=== PATIENT | female | born 1970 | race Caucasian/White ===

== ENCOUNTER 2016-11-11 09:21 | Emergency (ER) | payer OTHER ==
[~2016-11-11] VITALS: Ht 157.5 cm; Wt 79.5 kg
[2016-11-11] MEDS ORDERED: PANT40TA2 PO (09:36)
[2016-11-11] MEDS ORDERED: OXYB5TA PO (09:36)
[2016-11-11] MEDS ORDERED: BUPR150T5 PO (09:36)
[2016-11-11] MEDS ORDERED: BUSP30TA PO (09:36)
[2016-11-11] MEDS ORDERED: ALBU17IN INH (09:36)
[2016-11-11] MEDS ORDERED: GABA600T PO (09:36)
[2016-11-11] MEDS ORDERED: FENO1CAP2 PO (09:36)
[2016-11-11] MEDS ORDERED: LORA10TA2 PO (09:36)
[2016-11-11] MEDS ORDERED: DALI1TAB2 PO (09:36)
[2016-11-11] MEDS ORDERED: FERR32TA PO (09:36)
[2016-11-11] MEDS ORDERED: HYDR10T PO (09:36)
[2016-11-11] MEDS ORDERED: ROPI1TAB PO (09:36)
[2016-11-11] MEDS ORDERED: TIZANIDINE PO (09:36)
[2016-11-11] MEDS ORDERED: MELO7.5T6 PO (09:36)
[2016-11-11] MEDS ORDERED: ATOR1TAB19 PO (09:36)
[2016-11-11] MEDS ORDERED: traMADol 50 MG TAB PO ONE (10:30)
[2016-11-11] MEDS ORDERED: ULTR50TA PO (11:23)
[2016-11-11 11:27] VITALS: BP 109/74
--- NOTE | 2016-11-11 11:28 | REP ---
LEFT KNEE, FIVE VIEWS: HISTORY: Pain. There is no acute fracture or dislocation. There is narrowing of the joint spaces. Osteophytes are present on the patella. IMPRESSION: Degenerative change as described above. Signed by Erick Pizano MD 11/11/2016 11:37 A
== END 2016-11-11 11:28 | disposition home or self-care (01) ==
LOC: M ED 10:25
DX: M17.9 Osteoarthritis of knee, unspecified (principal); J44.9 Chronic obstructive pulmonary disease, unspecified; G89.29 Other chronic pain; F17.200 Nicotine dependence, unspecified, uncomplicated; Z86.718 Personal history of other venous thrombosis and embolism; Z86.711 Personal history of pulmonary embolism; Z79.899 Other long term (current) drug therapy

== ENCOUNTER 2017-09-24 09:22 | Emergency (ER) | payer OTHER ==
[2017-09-24] MEDS: PERCOCET 5MG/325MG TAB PO (10:08)
== END 2017-09-24 11:01 | disposition home or self-care (01) ==
LOC: M ED 09:22
DX: S23.41XA Sprain of ribs, initial encounter (principal); J44.9 Chronic obstructive pulmonary disease, unspecified; X58.XXXA Exposure to other specified factors, initial encounter; Y92.89 Other specified places as the place of occurrence of the external cause; E78.5 Hyperlipidemia, unspecified; K21.9 Gastro-esophageal reflux disease without esophagitis; F41.9 Anxiety disorder, unspecified; M54.9 Dorsalgia, unspecified; F43.10 Post-traumatic stress disorder, unspecified; Z77.098 Contact with and (suspected) exposure to other hazardous, chiefly nonmedicinal, chemicals; Z79.899 Other long term (current) drug therapy; Z79.52 Long term (current) use of systemic steroids
CPT/HCPCS: 71101

== ENCOUNTER 2018-01-31 11:01 | Emergency (ER) | payer OTHER ==
[2018-01-31] MEDS: NORCO, ANEXSIA 5/325MG TABLET (HYDROcodone/ACETAMINOPHEN) PO (13:48)
== END 2018-01-31 14:14 | disposition home or self-care (01) ==
LOC: M ED 11:01
DX: S90.31XA Contusion of right foot, initial encounter (principal); W10.9XXA Fall (on) (from) unspecified stairs and steps, initial encounter; Y92.009 Unspecified place in unspecified non-institutional (private) residence as the place of occurrence of the external cause; M20.11 Hallux valgus (acquired), right foot; M77.31 Calcaneal spur, right foot; J44.9 Chronic obstructive pulmonary disease, unspecified; G47.419 Narcolepsy without cataplexy; E78.00 Pure hypercholesterolemia, unspecified; D64.9 Anemia, unspecified; F41.9 Anxiety disorder, unspecified; F43.10 Post-traumatic stress disorder, unspecified; F17.200 Nicotine dependence, unspecified, uncomplicated; Z79.899 Other long term (current) drug therapy
CPT/HCPCS: 73630

== ENCOUNTER 2019-01-06 00:12 | Emergency (ER) | payer OTHER ==
[~2019-01-06] VITALS: Ht 157.5 cm; Wt 82.7 kg
[~2019-01-06 00:12] MED LIST: ALBU17IN INH; ATOR1TAB19 PO; BUPR150T5 PO; BUSP30TA PO; DALI1TAB2 PO; FENO135C6 PO; FERR32TA PO; GABA600T4 PO; HYDR-3715 PO; HYDR-643 PO; INCR1INH; LINZ290C; LORA-243 PO; MELO7.5T7 PO; NEXI40CA PO; OLAN15TA PO; ORPH100T; OXYB5TAB10 PO; PANT40TA3 PO; PARO40TA2; PRED5TA; ROPI1TAB PO; TIZANIDINE PO; TOLT2TAB12; TRAZ-163; ULTR50TA8 PO
[2019-01-06] MEDS ORDERED: PANT40TA3 (00:20)
[2019-01-06] MEDS ORDERED: ALBU8.5H (00:20)
[2019-01-06] MEDS ORDERED: MELO7.5T35 (00:20)
[2019-01-06] MEDS ORDERED: METH1TAB40 (00:20)
[2019-01-06] MEDS ORDERED: BUPR150T5 (00:20)
[2019-01-06] MEDS ORDERED: IPRA0.00 (00:20)
[2019-01-06] MEDS ORDERED: CAPSAICIN 0.025% CR 60 GM TOP STA (01:03)
[2019-01-06] MEDS ORDERED: BIOF4GEL4 TOP (01:52)
[2019-01-06] MEDS ORDERED: CAPS0.022 TOP (01:52)
[2019-01-06 02:00] VITALS: BP 137/74
--- NOTE | 2019-01-06 09:54 | REP ---
COMPARISON: 01/06/2012 HISTORY: Pain, no trauma. AP and lateral views only. There is evidence of patellofemoral joint space narrowing and medial compartmental narrowing with tricompartmental marginal osteophytosis. This limited two view examination shows no evidence of a fracture. IMPRESSION: Chronic changes which have developed since the last exam. Electronically Signed by Wagner Vann DO 01/06/2019 10:06 A
--- NOTE | 2019-01-06 09:57 | REP ---
HISTORY: Hip pain. COMPARISON: There are no priors for comparison. There is advanced chronic change seen involving the left hip. There is marked asymmetric hip joint space narrowing with subchondral sclerosis and femoral head flattening. There is no evidence of an acute fracture. The hip may be subluxed somewhat superolaterally. There are no priors for comparison. IMPRESSION: Advanced chronic changes. The findings could be secondary to Perthes disease or chronic AVN. Correlate clinically. Electronically Signed by Wagner Vann DO 01/06/2019 10:06 A
--- NOTE | 2019-01-12 20:36 | ED PDOC ---
Post-Departure Follow-Up dr hoang and ramiro jones faxed formal report of left hip fillm for fu Donal Bassett MD Jan 12, 2019 20:36
== END 2019-01-06 02:01 | disposition home or self-care (01) ==
LOC: M ED 00:12
DX: M16.12 Unilateral primary osteoarthritis, left hip (principal); M17.12 Unilateral primary osteoarthritis, left knee; E78.5 Hyperlipidemia, unspecified; J44.9 Chronic obstructive pulmonary disease, unspecified; Z79.51 Long term (current) use of inhaled steroids; Z79.899 Other long term (current) drug therapy

== ENCOUNTER → 2020-07-24 | Outpatient (CLI) | payer OTHER ==
[~2020-07-24] MED LIST changes: +ALBU8.5H; +BIOF4GEL4 TOP; +BUPR150T5; +CAPS0.022 TOP; +IPRA0.00; +MELO7.5T35; +METH-1164; +PANT40TA29; +PANT40TA29 PO; -PANT40TA3 PO; -ROPI1TAB PO; +ROPI1TAB3 PO; -TRAZ-163; +TRAZ-257
[2020-07-24 09:09] LABS: BASO % 0.2 % (0.0-1.0); HEMATOCRIT 44.7 % (36.0-47.0); HEMOGLOBIN 14.1 g/dl (12.0-15.5); LYMPH # 0.8 10^3/uL (1.5-5.0); LYMPH % 6.7 % (24.0-44.0); MEAN CORPUSCULAR HEMOGLOBIN 29.4 pg (27.0-33.0); MEAN CORPUSCULAR HGB CONC 31.5 g/dl (32.0-36.5); MEAN CORPUSCULAR VOLUME 93.3 fl (80.0-96.0); MONO # 0.4 10^3/uL (0.0-0.8); MONO % 3.6 % (2.0-8.0); NEUTROPHILS # 10.2 10^3/uL (1.5-8.5); NEUTROPHILS % 88.5 % (36.0-66.0); PLATELET COUNT, AUTOMATED 364 10^3/uL (150-450); RED BLOOD COUNT 4.79 10^6/uL (4.00-5.40); WHITE BLOOD COUNT 11.5 10^3/uL (4.0-10.0)
--- NOTE | 2020-07-24 09:21 | REP ---
INDICATION: SHORTNESS OF BREATH/ PT HAS LABS FIRST. COMPARISON: Comparison radiographs September 24, 2017. Comparison is also made with 22 April 2020 prior radiograph. TECHNIQUE: Two views.. FINDINGS: The heart is enlarged. Cardiothoracic ratio measures 59.0%. Pulmonary vasculature is cephalized. Interstitial markings are diffusely prominent. These findings are more pronounced than on the September 24, 2017 prior chest x-ray. In comparison with more recent chest x-ray of 22 April 2020, they are essentially stable however. Pleural angles are sharp. No focal infiltrate is seen. No acute bony abnormality. IMPRESSION: Cardiomegaly and diffuse interstitial pattern, similar to the April 22, 2020 prior radiographs. Some vascular cephalization is seen. No pleural effusion is noted.. <Electronically signed by Manpreet Arriaga > 07/24/20 [id number]
[2020-07-24 09:28] LABS: ERYTHROCYTE SEDIMENTATION RATE 47 mm/hr (0-30)
[2020-07-24 09:35] LABS: ALBUMIN 2.9 GM/DL (3.2-5.2); ALT/SGPT 13 U/L (12-78); BILIRUBIN,TOTAL 0.2 MG/DL (0.2-1.0); BLOOD UREA NITROGEN 8 MG/DL (7-18); CALCIUM LEVEL 9.1 MG/DL (8.5-10.1); CARBON DIOXIDE LEVEL 22 MEQ/L (21-32); CHLORIDE LEVEL 104 MEQ/L (98-107); CREATININE FOR GFR 0.88 MG/DL (0.55-1.30); GLOMERULAR FILTRATION RATE > 60.0 (>51); GLUCOSE, FASTING 110 MG/DL (70-100); MAGNESIUM LEVEL 1.7 MG/DL (1.8-2.4); NT-PRO BNP 434 PG/ML (<125); POTASSIUM SERUM 4.5 MEQ/L (3.5-5.1); RHEUMATOID FACTOR QUANT < 10.0 IU/ML (<15.0); SODIUM LEVEL 137 MEQ/L (136-145); TOTAL PROTEIN 7.4 GM/DL (6.4-8.2)
[2020-07-25 13:33] LABS: ANTINUCLEAR ANTIBODIES DIRECT Negative (Negative)
== END ==
LOC: M LAB 07:55
PROVIDERS: ATTEND Internal Medicine Cardiovascular Disease
DX: R06.02 Shortness of breath (principal); R94.31 Abnormal electrocardiogram [ECG] [EKG]; I47.1 Supraventricular tachycardia

== ENCOUNTER → 2020-12-29 | Outpatient (REF) | payer OTHER ==
[~2020-12-29] MED LIST changes: -OLAN15TA PO; +OLAN15TA13 PO
[2020-12-29 13:31] LABS: C REACTIVE PROTEIN QUANTITATIV 3.49 MG/DL (0.00-0.30); RHEUMATOID FACTOR QUANT 10.3 IU/ML (<15.0); URIC ACID 4.6 MG/DL (2.6-6.0)
[2020-12-29 13:40] LABS: HEPATITIS B SURFACE ANTIBODY NEGATIVE (POSITIVE)
[2020-12-29 13:51] LABS: HEPATITIS B SURFACE ANTIGEN NEGATIVE (NEGATIVE)
[2020-12-29 14:20] LABS: HEPATITIS C VIRUS ABY INDEX 0.1 INDEX (<0.8)
[2020-12-31 00:10] LABS: CYCLIC CITRULLINATED PEPTIDE 7 units (0-19); HEPATITIS B CORE ANTIBODY IGG Negative (Negative)
== END ==
LOC: M SFHCRHEU 10:17
PROVIDERS: ATTEND Internal Medicine
DX: R76.8 Other specified abnormal immunological findings in serum (principal); R70.0 Elevated erythrocyte sedimentation rate; M25.461 Effusion, right knee

== ENCOUNTER → 2021-01-14 | Outpatient (CLI) | payer OTHER ==
--- NOTE | 2021-01-14 10:12 | REP ---
INDICATION: PAIN IN LEFT HIP COMPARISON: None. TECHNIQUE: AP and frog-lateral views of the right and left hip FINDINGS: Right hip demonstrates increased sclerosis along the acetabulum and underlying femoral head with subtle subchondral cystic changes as well as joint space narrowing and mild marginal spurring. No acute fracture or dislocation. Left hip demonstrates severe near complete joint space obliteration with some element of flattening/remodeling as well as underlying subchondral sclerosis and cystic changes to the acetabulum and femoral head. No acute fracture or dislocation. IMPRESSION: 1. Severe osteoarthritic degenerative changes to the left hip. 2. Early-advanced osteoarthritic changes to the right hip. <Electronically signed by Emanuel Banuelos > 01/14/21 [id number]
--- NOTE | 2021-01-14 10:14 | REP ---
INDICATION: PAIN IN LEFT HIP COMPARISON: None. TECHNIQUE: AP, lateral, bilateral oblique and sunrise views right and left knee. FINDINGS: Right knee demonstrates cortical irregularity and subtle spurring at the femoral condyles with increased irregular sclerosis along the lateral femoral condyle as well as increased sclerosis to the tibial plateau with minimal joint space narrowing and subtle chondrocalcinosis. Pastura view demonstrates increased sclerosis along the posterior patellar margin with marginal spurring and mild patellofemoral joint space narrowing. No acute fracture or dislocation. No obvious effusion. Left knee demonstrates mild cortical irregularity to the femoral condyles along with subtle joint space narrowing. Pastura view demonstrates mild increased sclerosis along the posterior patellar margin with mild patellofemoral joint space narrowing. No acute fracture or dislocation. No obvious effusion. IMPRESSION: Relatively moderate tricompartmental osteoarthritic degenerative changes to the bilateral knees (right greater than left). <Electronically signed by Emanuel Banuelos > 01/14/21 [id number]
== END ==
LOC: M PLAIMG 08:07
PROVIDERS: ATTEND Internal Medicine
DX: M25.552 Pain in left hip (principal); M25.551 Pain in right hip; M25.562 Pain in left knee; M25.561 Pain in right knee

== ENCOUNTER → 2021-11-22 | Outpatient (CLI) | payer OTHER ==
[~2021-11-22] MED LIST changes: +BUPR-71; +BUPR-71 PO; -BUPR150T5; -BUPR150T5 PO
== END ==
LOC: M RAD 14:43
PROVIDERS: ATTEND Physician Assistant
DX: J44.1 Chronic obstructive pulmonary disease with (acute) exacerbation (principal)

== ENCOUNTER 2022-12-06 13:13 | Inpatient (IN) | payer MEDICAID, OTHER ==
[~2022-12-06] VITALS: Ht 157.5 cm; Wt 43.8 kg
[~2022-12-06 13:13] MED LIST changes: -ORPH100T; +ORPH1TAB6; -ROPI1TAB3 PO; +ROPI1TAB73 PO
[2022-12-06] MEDS ORDERED: IPRATROPIUM 0.5MG/ALBUTEROL 2.5MG INH SOL UD 3ML (DUONEB) NEB ONE (19:35)
[2022-12-06 19:46] LABS: BASO % 0.1 % (0.0-1.0); EOS # 0.4 10^3/uL (0.0-0.5); EOS % 2.9 % (0.0-3.0); HEMATOCRIT 43.1 % (36.0-47.0); HEMOGLOBIN 14.3 g/dl (12.0-15.5); LYMPH # 1.4 10^3/uL (1.5-5.0); MEAN CORPUSCULAR HEMOGLOBIN 29.2 pg (27.0-33.0); MEAN CORPUSCULAR HGB CONC 33.2 g/dl (32.0-36.5); MONO # 0.9 10^3/uL (0.0-0.8); MONO % 7.2 % (2.0-8.0); NEUTROPHILS # 9.7 10^3/uL (1.5-8.5); NEUTROPHILS % 78.5 % (36.0-66.0); PLATELET COUNT, AUTOMATED 407 10^3/uL (150-450); WHITE BLOOD COUNT 12.3 10^3/uL (4.0-10.0)
[2022-12-06 20:03] LABS: BLOOD UREA NITROGEN 10 MG/DL (9-23); CALCIUM LEVEL 8.6 MG/DL (8.5-10.1); CARBON DIOXIDE LEVEL 30 MMOL/L (20-31); CHLORIDE LEVEL 91 MMOL/L (98-107); CREATININE FOR GFR 0.43 MG/DL (0.55-1.30); GLOMERULAR FILTRATION RATE > 60.0 (>51); GLUCOSE, FASTING 95 MG/DL (60-100); POTASSIUM SERUM 3.7 MMOL/L (3.5-5.1); SODIUM LEVEL 128 MMOL/L (136-145)
[2022-12-06] MEDS: traZODone 50 MG TAB PO SCH (21:00)
[2022-12-06] MEDS ORDERED: NS 1,000 ML IV ONE (21:45)
[2022-12-06] MEDS ORDERED: LOPERAMIDE 2 MG CAPLET PO ONE (21:45)
[2022-12-06] MEDS ORDERED: MED REC IN PROGRESS XX SCH (22:05)
[2022-12-06] MEDS ORDERED: ALBU8.5H INH (23:17)
[2022-12-06] MEDS ORDERED: ATOR1TAB19 PO (23:17)
[2022-12-06] MEDS ORDERED: PARO40TA2 PO (23:17)
[2022-12-06] MEDS ORDERED: ROPI1TAB73 PO (23:17)
[2022-12-06] MEDS ORDERED: BUSP30TA PO (23:17)
[2022-12-06] MEDS ORDERED: FERR32TA PO (23:17)
[2022-12-06] MEDS ORDERED: ALBU2.5V10 INH (23:17)
[2022-12-06] MEDS ORDERED: TRAZ-257 PO (23:17)
[2022-12-06] MEDS ORDERED: DALI1TAB2 PO (23:17)
[2022-12-06] MEDS ORDERED: LACT237L7 PO (23:17)
[2022-12-06] MEDS ORDERED: TOLT2TAB12 PO (23:17)
[2022-12-06] MEDS ORDERED: GABA600T4 PO (23:17)
[2022-12-06] MEDS ORDERED: VITMTA PO (23:17)
[2022-12-06] MEDS ORDERED: ESOM0.1C PO (23:17)
[2022-12-06] MEDS ORDERED: HOME MED LIST COMPLETE! XX SCH (23:20)
[2022-12-06] MEDS ORDERED: ACETAMINOPHEN TAB 650MG DOSE (2X325MG) PO PRN (23:20)
[2022-12-06] MEDS ORDERED: methylPREDNISolone 40MG 1ML VIAL IV STA (23:20)
[2022-12-06] MEDS ORDERED: ALBUTEROL SULFATE 2.5MG/0.5ML INH NEB SOLN INH PRN (23:20)
[2022-12-07] VITALS (20 sets, daily range): BP systolic 96–148; BP diastolic 56–95; TEMP 97.9–98.6; O2SAT 85–99
[2022-12-07] MEDS: TOLTERODINE (DETROL) 2 MG TAB PO SCH ×2 (00:40→20:50)
[2022-12-07] MEDS: rOPINIRole 1MG TAB PO SCH ×3 (00:41→20:50)
[2022-12-07] MEDS: cefTRIAXone SOD 1 GM in D5W MINI-BAG PLUS 50 ML IV SCH ×2 (01:22→23:52)
[2022-12-07] MEDS: DOXYCYCLINE HYCLATE 100MG TABLET PO SCH ×3 (01:27→20:51)
[2022-12-07] MEDS: GABAPENTIN 300 MG CAP PO SCH ×5 (01:28→20:51)
[2022-12-07] MEDS: busPIRone 10 MG TAB PO SCH ×3 (01:28→21:44)
[2022-12-07 02:08] LABS: BLOOD UREA NITROGEN 10 MG/DL (9-23); CALCIUM LEVEL 8.9 MG/DL (8.5-10.1); CARBON DIOXIDE LEVEL 27 MMOL/L (20-31); CHLORIDE LEVEL 96 MMOL/L (98-107); CREATININE FOR GFR 0.41 MG/DL (0.55-1.30); GLOMERULAR FILTRATION RATE > 60.0 (>51); GLUCOSE, FASTING 85 MG/DL (60-100); POTASSIUM SERUM 3.7 MMOL/L (3.5-5.1); SODIUM LEVEL 129 MMOL/L (136-145)
[2022-12-07] MEDS: IPRATROPIUM 0.5MG/ALBUTEROL 2.5MG INH SOL UD 3ML (DUONEB) INH SCH ×4 (02:56→19:51)
[2022-12-07] MEDS: HEPARIN SOD (PORCINE) 5000UNITS/ML 1ML VIAL/SYRINGE SC SCH ×3 (05:29→21:45)
[2022-12-07] MEDS ORDERED: methylPREDNISolone 40MG 1ML VIAL IV SCH (06:00)
[2022-12-07 06:49] LABS: ALBUMIN 2.8 G/DL (3.2-5.2); ALKALINE PHOSPHATASE 91 U/L (46-116); ALT/SGPT < 9 U/L (7.0-40); AST/SGOT 17 U/L (<34); BILIRUBIN,TOTAL 0.3 MG/DL (0.3-1.2); BLOOD UREA NITROGEN 9 MG/DL (9-23); CALCIUM LEVEL 8.4 MG/DL (8.5-10.1); CARBON DIOXIDE LEVEL 28 MMOL/L (20-31); CHLORIDE LEVEL 97 MMOL/L (98-107); CREATININE FOR GFR 0.42 MG/DL (0.55-1.30); GLOMERULAR FILTRATION RATE > 60.0 (>51); GLUCOSE, FASTING 102 MG/DL (60-100); POTASSIUM SERUM 3.9 MMOL/L (3.5-5.1); SODIUM LEVEL 134 MMOL/L (136-145); TOTAL PROTEIN 6.6 G/DL (5.7-8.2)
[2022-12-07 06:54] LABS: PROCALCITONIN <0.04 ng/ml
[2022-12-07 07:29] LABS: OSMOLALITY URINE 260 MOSM/KG (50-1400)
[2022-12-07 07:36] LABS: BASO % 0.1 % (0.0-1.0); EOS % 0.4 % (0.0-3.0); HEMATOCRIT 40.7 % (36.0-47.0); HEMOGLOBIN 13.6 g/dl (12.0-15.5); LYMPH # 0.4 10^3/uL (1.5-5.0); LYMPH % 3.2 % (24.0-44.0); MEAN CORPUSCULAR HEMOGLOBIN 29.9 pg (27.0-33.0); MEAN CORPUSCULAR HGB CONC 33.4 g/dl (32.0-36.5); MEAN CORPUSCULAR VOLUME 89.5 fl (80.0-96.0); MONO # 0.1 10^3/uL (0.0-0.8); NEUTROPHILS # 10.4 10^3/uL (1.5-8.5); NEUTROPHILS % 94.8 % (36.0-66.0); PLATELET COUNT, AUTOMATED 376 10^3/uL (150-450); RED BLOOD COUNT 4.55 10^6/uL (4.00-5.40)
[2022-12-07 07:44] LABS: SODIUM,RANDOM URINE 42 MMOL/L
[2022-12-07] MEDS ORDERED: ISOVUE-370 76% 100ML VIAL As Ordered ONE (08:22)
[2022-12-07] MEDS: FERROUS GLUCONATE 324 MG TAB PO SCH ×2 (08:40→20:50)
[2022-12-07] MEDS: ATORVASTATIN 10 MG TAB PO SCH (08:40)
[2022-12-07] MEDS: PANTOPRAZOLE 40MG TAB (PROTONIX) PO SCH (08:40)
[2022-12-07] MEDS: PARoxetine 20MG TABLET PO SCH ×2 (08:40→20:51)
[2022-12-07] MEDS ORDERED: methylPREDNISolone 40MG 1ML VIAL IV ONE (09:00)
[2022-12-07 09:01] LABS: CK-MB VALUE MASS 2.8 NG/ML (<3.6)
[2022-12-07 09:08] LABS: MB/CK RELATIVE INDEX 4.44 (< OR =4)
[2022-12-07] MEDS ORDERED: LOPERAMIDE 2 MG CAPLET PO PRN (09:10)
[2022-12-07 09:14] LABS: ABG BASE EXCESS 2.9 (-2.0-2.0); ABG HCO3 27.7 MMOL/L (22.0-26.0); ABG O2 SATURATION 97.3 % (95.0-99.0); ABG PARTIAL PRESSURE CO2 43.3 mmHg (35.0-45.0); ABG PARTIAL PRESSURE O2 94.7 mmHg (75.0-100.0); ABG pH (ARTERIAL) 7.424 UNITS (7.350-7.450)
[2022-12-07] MEDS: MAALOX 30 ML SUSP *UDC PO PRN ×2 (09:21→17:34)
[2022-12-07 11:13] LABS: CK-MB VALUE MASS 2.2 NG/ML (<3.6)
[2022-12-07 11:16] LABS: CPK CREATINE PHOSPHOKINASE 79 U/L (34-145); MB/CK RELATIVE INDEX 2.78 (< OR =4)
[2022-12-07] MEDS: guaiFENesin ER 600 MG TAB PO SCH ×2 (11:48→20:51)
[2022-12-07 12:04] LABS: MAGNESIUM LEVEL 1.3 MG/DL (1.8-2.4)
[2022-12-07 12:14] LABS: PROCALCITONIN <0.04 ng/ml
[2022-12-07 12:15] LABS: CK-MB VALUE MASS 3.3 NG/ML (<3.6)
[2022-12-07 12:16] LABS: MB/CK RELATIVE INDEX 5.23 (< OR =4)
[2022-12-07 12:18] LABS: COMPLEMENT C3 106.9 MG/DL (90.0-170.0); COMPLEMENT C4 26.9 MG/DL (12-36); RHEUMATOID FACTOR QUANT 14.6 IU/ML (<14)
[2022-12-07] MEDS: TIOTROPIUM INHALER/CAPSULE (SPIRIVA) INH SCH (12:24)
[2022-12-07] MEDS: SYMBICORT 80/4.5MCG INHALER 6GM INH SCH ×2 (12:25→19:51)
[2022-12-07] MEDS: methylPREDNISolone 40MG 1ML VIAL IV SCH ×2 (13:23→21:45)
[2022-12-07] MEDS ORDERED: DICYCLOMINE 10 MG CAP PO PRN (16:45)
[2022-12-07] MEDS: MAG SULF 1GM/100ML (MAG RUN) 1 GM in IV 1 EA IV SCH ×4 (17:34→20:50)
[2022-12-07] MEDS: traZODone 50 MG TAB PO SCH (20:51)
[2022-12-08] VITALS (9 sets, daily range): BP systolic 95–130; BP diastolic 57–73; TEMP 97.3–98; O2SAT 85–99
[2022-12-08] MEDS: IPRATROPIUM 0.5MG/ALBUTEROL 2.5MG INH SOL UD 3ML (DUONEB) INH SCH ×4 (03:02→19:42)
[2022-12-08 04:47] LABS: HEMATOCRIT 39.6 % (36.0-47.0); HEMOGLOBIN 13.1 g/dl (12.0-15.5); LYMPH # 0.5 10^3/uL (1.5-5.0); LYMPH % 3.7 % (24.0-44.0); MEAN CORPUSCULAR HEMOGLOBIN 29.8 pg (27.0-33.0); MEAN CORPUSCULAR HGB CONC 33.1 g/dl (32.0-36.5); MEAN CORPUSCULAR VOLUME 90.2 fl (80.0-96.0); MONO # 0.5 10^3/uL (0.0-0.8); MONO % 3.6 % (2.0-8.0); NEUTROPHILS # 12.9 10^3/uL (1.5-8.5); NEUTROPHILS % 92.3 % (36.0-66.0); PLATELET COUNT, AUTOMATED 379 10^3/uL (150-450); RED BLOOD COUNT 4.39 10^6/uL (4.00-5.40)
[2022-12-08] MEDS: methylPREDNISolone 40MG 1ML VIAL IV SCH (05:04)
[2022-12-08] MEDS: HEPARIN SOD (PORCINE) 5000UNITS/ML 1ML VIAL/SYRINGE SC SCH ×3 (05:05→21:44)
[2022-12-08 05:06] LABS: BLOOD UREA NITROGEN 12 MG/DL (9-23); CALCIUM LEVEL 8.2 MG/DL (8.5-10.1); CARBON DIOXIDE LEVEL 29 MMOL/L (20-31); CHLORIDE LEVEL 96 MMOL/L (98-107); CREATININE FOR GFR 0.43 MG/DL (0.55-1.30); GLOMERULAR FILTRATION RATE > 60.0 (>51); GLUCOSE, FASTING 190 MG/DL (60-100); MAGNESIUM LEVEL 2.3 MG/DL (1.8-2.4); POTASSIUM SERUM 3.3 MMOL/L (3.5-5.1); SODIUM LEVEL 134 MMOL/L (136-145)
[2022-12-08] MEDS ORDERED: POTASSIUM CHLORIDE 10MEQ SR TABLET PO ONE ×2 (06:00→08:00)
[2022-12-08] MEDS: SYMBICORT 80/4.5MCG INHALER 6GM INH SCH ×2 (08:14→19:43)
[2022-12-08] MEDS: TIOTROPIUM INHALER/CAPSULE (SPIRIVA) INH SCH (08:14)
[2022-12-08] MEDS: DOXYCYCLINE HYCLATE 100MG TABLET PO SCH (09:06)
[2022-12-08] MEDS: FERROUS GLUCONATE 324 MG TAB PO SCH ×2 (09:06→20:33)
[2022-12-08] MEDS: ATORVASTATIN 10 MG TAB PO SCH (09:06)
[2022-12-08] MEDS: PARoxetine 20MG TABLET PO SCH (09:06)
[2022-12-08] MEDS: PANTOPRAZOLE 40MG TAB (PROTONIX) PO SCH (09:06)
[2022-12-08] MEDS: guaiFENesin ER 600 MG TAB PO SCH ×2 (09:06→20:33)
[2022-12-08] MEDS: rOPINIRole 1MG TAB PO SCH ×2 (09:06→20:33)
[2022-12-08] MEDS: GABAPENTIN 300 MG CAP PO SCH ×4 (09:07→20:33)
[2022-12-08] MEDS: busPIRone 10 MG TAB PO SCH ×2 (09:07→20:33)
[2022-12-08] MEDS ORDERED: LORazepam 2 MG/ML 1ML VIAL IV STA (10:55)
[2022-12-08] MEDS: methylPREDNISolone 125MG 2ML VIAL IV SCH ×2 (12:09→20:33)
[2022-12-08] MEDS: LevoFLOXacin 750 MG TABLET PO SCH (13:34)
[2022-12-08] MEDS: diazePAM 5MG TABLET PO SCH (16:36)
[2022-12-08] MEDS ORDERED: PILL CUTTER 1 EACH XX PRN (16:40)
[2022-12-08] MEDS: TOLTERODINE (DETROL) 2 MG TAB PO SCH (20:33)
[2022-12-08] MEDS: traZODone 50 MG TAB PO SCH (20:33)
[2022-12-09] VITALS (9 sets, daily range): BP systolic 94–118; BP diastolic 55–73; TEMP 97.4–98.8; O2SAT 78–98
[2022-12-09] MEDS: IPRATROPIUM 0.5MG/ALBUTEROL 2.5MG INH SOL UD 3ML (DUONEB) INH SCH ×3 (02:55→13:23)
[2022-12-09 05:04] LABS: BASO % 0.1 % (0.0-1.0); HEMATOCRIT 36.5 % (36.0-47.0); LYMPH # 0.4 10^3/uL (1.5-5.0); LYMPH % 2.3 % (24.0-44.0); MEAN CORPUSCULAR HEMOGLOBIN 29.7 pg (27.0-33.0); MEAN CORPUSCULAR HGB CONC 32.9 g/dl (32.0-36.5); MEAN CORPUSCULAR VOLUME 90.3 fl (80.0-96.0); MONO # 0.7 10^3/uL (0.0-0.8); MONO % 3.6 % (2.0-8.0); NEUTROPHILS # 16.8 10^3/uL (1.5-8.5); NEUTROPHILS % 93.5 % (36.0-66.0); PLATELET COUNT, AUTOMATED 365 10^3/uL (150-450); RED BLOOD COUNT 4.04 10^6/uL (4.00-5.40); WHITE BLOOD COUNT 17.9 10^3/uL (4.0-10.0)
[2022-12-09] MEDS: methylPREDNISolone 125MG 2ML VIAL IV SCH (05:14)
[2022-12-09] MEDS: HEPARIN SOD (PORCINE) 5000UNITS/ML 1ML VIAL/SYRINGE SC SCH (05:14)
[2022-12-09] MEDS: LevoFLOXacin 750 MG TABLET PO SCH (05:15)
[2022-12-09 05:40] LABS: BLOOD UREA NITROGEN 12 MG/DL (9-23); CARBON DIOXIDE LEVEL 32 MMOL/L (20-31); CHLORIDE LEVEL 99 MMOL/L (98-107); CREATININE FOR GFR 0.41 MG/DL (0.55-1.30); GLOMERULAR FILTRATION RATE > 60.0 (>51); GLUCOSE, FASTING 125 MG/DL (60-100); MAGNESIUM LEVEL 1.7 MG/DL (1.8-2.4); POTASSIUM SERUM 4.1 MMOL/L (3.5-5.1); SODIUM LEVEL 133 MMOL/L (136-145)
[2022-12-09] MEDS ORDERED: MAG SULF 1GM/100ML (MAG RUN) 1 GM in IV 1 EA IV ONE (06:00)
[2022-12-09] MEDS: TIOTROPIUM INHALER/CAPSULE (SPIRIVA) INH SCH (07:14)
[2022-12-09] MEDS: SYMBICORT 80/4.5MCG INHALER 6GM INH SCH (07:15)
[2022-12-09] MEDS: FERROUS GLUCONATE 324 MG TAB PO SCH (08:52)
[2022-12-09] MEDS: GABAPENTIN 300 MG CAP PO SCH ×2 (08:52→12:37)
[2022-12-09] MEDS: rOPINIRole 1MG TAB PO SCH (08:52)
[2022-12-09] MEDS: busPIRone 10 MG TAB PO SCH (08:52)
[2022-12-09] MEDS: guaiFENesin ER 600 MG TAB PO SCH (08:53)
[2022-12-09] MEDS: PANTOPRAZOLE 40MG TAB (PROTONIX) PO SCH (08:54)
[2022-12-09] MEDS: ATORVASTATIN 10 MG TAB PO SCH (08:54)
[2022-12-09] MEDS: diazePAM 5MG TABLET PO SCH (08:54)
[2022-12-09] MEDS: PARoxetine 20MG TABLET PO SCH (08:57)
[2022-12-09] MEDS ORDERED: predniSONE 20 MG TAB PO SCH (09:00)
[2022-12-09 09:42] LABS: FREE T4 1.31 NG/DL (0.89-1.76)
[2022-12-09] MEDS ORDERED: DIAZ5TAB PO ×3 (10:54→11:03)
[2022-12-09] MEDS ORDERED: PRED10TA2 PO (10:54)
[2022-12-09] MEDS ORDERED: LEVO1TAB40 PO (10:54)
[2022-12-09] MEDS ORDERED: PRED20TA PO (11:05)
[2022-12-09] MEDS ORDERED: diazePAM 5MG TABLET PO ONE (12:40)
== END 2022-12-09 14:14 | disposition home health service (06) | DRG 249 ==
LOC: M ED 13:13 → EDBD 13:13 → M ED INP 23:20 → M MSPAV 12-07 00:50 → M ICU 12-07 09:38
PROVIDERS: ADMIT Internal Medicine; ATTEND Internal Medicine
DX: R19.7 Diarrhea, unspecified (principal); J96.21 Acute and chronic respiratory failure with hypoxia; J18.9 Pneumonia, unspecified organism; J98.2 Interstitial emphysema; J44.1 Chronic obstructive pulmonary disease with (acute) exacerbation; J45.901 Unspecified asthma with (acute) exacerbation; E87.1 Hypo-osmolality and hyponatremia; Z99.81 Dependence on supplemental oxygen; M79.7 Fibromyalgia; E78.5 Hyperlipidemia, unspecified; D50.9 Iron deficiency anemia, unspecified; G47.00 Insomnia, unspecified; F41.1 Generalized anxiety disorder; F39 Unspecified mood [affective] disorder; K21.9 Gastro-esophageal reflux disease without esophagitis; F81.9 Developmental disorder of scholastic skills, unspecified; D72.829 Elevated white blood cell count, unspecified; E87.6 Hypokalemia; Z87.891 Personal history of nicotine dependence; K58.8 Other irritable bowel syndrome; Z79.899 Other long term (current) drug therapy; N32.81 Overactive bladder

== ENCOUNTER 2022-12-28 15:01 | Observation (INO) | payer MEDICAID, OTHER ==
[~2022-12-28] VITALS: Ht 157.5 cm; Wt 46.4 kg
[~2022-12-28 15:01] MED LIST changes: +ALBU2.5V10 INH; +ALBU8.5H INH; +AZITHROMYCIN 250MG TABLET PO SCH; +DIAZ5TAB PO; +ESOM0.1C PO; +LACT237L7 PO; +LEVO1TAB40 PO; +PARO40TA2 PO; +PRED10TA2 PO; +PRED20TA PO; +TOLT2TAB12 PO; +TRAZ-257 PO; +VITMTA PO
[2022-12-28 15:37] LABS: VENOUS HCO3 33.1 MMOL/L (23.0-27.0); VENOUS O2 SATURATION 97.4 % (60.0-80.0); VENOUS PARTIAL PRESSURE CO2 52.3 mmHg (38.0-50.0); VENOUS PARTIAL PRESSURE O2 96.8 mmHg (30.0-50.0); VENOUS PH 7.419 UNITS (7.330-7.430); VENOUS STANDARD HCO3 30.9 MMOL/L; VENOUS TOTAL CO2 34.7 MMOL/L (24.0-28.0)
[2022-12-28 15:45] LABS: BASO % 0.1 % (0.0-1.0); EOS # 0.1 10^3/uL (0.0-0.5); HEMATOCRIT 42.3 % (36.0-47.0); HEMOGLOBIN 13.3 g/dl (12.0-15.5); LYMPH # 0.5 10^3/uL (1.5-5.0); MEAN CORPUSCULAR HEMOGLOBIN 29.7 pg (27.0-33.0); MEAN CORPUSCULAR HGB CONC 31.4 g/dl (32.0-36.5); MEAN CORPUSCULAR VOLUME 94.4 fl (80.0-96.0); MONO # 0.3 10^3/uL (0.0-0.8); MONO % 1.9 % (2.0-8.0); NEUTROPHILS # 12.6 10^3/uL (1.5-8.5); NEUTROPHILS % 92.6 % (36.0-66.0); PLATELET COUNT, AUTOMATED 321 10^3/uL (150-450); RED BLOOD COUNT 4.48 10^6/uL (4.00-5.40); WHITE BLOOD COUNT 13.6 10^3/uL (4.0-10.0)
[2022-12-28 16:10] LABS: ALKALINE PHOSPHATASE 86 U/L (46-116); ALT/SGPT 17 U/L (7.0-40); AST/SGOT 19 U/L (<34); BILIRUBIN,DIRECT < 0.1 MG/DL (<0.4); BILIRUBIN,TOTAL 0.3 MG/DL (0.3-1.2); BLOOD UREA NITROGEN 12 MG/DL (9-23); CALCIUM LEVEL 8.7 MG/DL (8.5-10.1); CARBON DIOXIDE LEVEL 33 MMOL/L (20-31); CHLORIDE LEVEL 96 MMOL/L (98-107); CREATININE FOR GFR 0.49 MG/DL (0.55-1.30); GLOMERULAR FILTRATION RATE > 60.0 (>51); GLUCOSE, FASTING 109 MG/DL (60-100); SODIUM LEVEL 133 MMOL/L (136-145); THYROID STIMULATING HORMONE 0.501 uIU/ML (0.55-4.78); TOTAL PROTEIN 6.2 G/DL (5.7-8.2)
[2022-12-28] MEDS ORDERED: methylPREDNISolone 125MG 2ML VIAL IV ONE (16:35)
[2022-12-28] MEDS ORDERED: MED REC IN PROGRESS XX SCH (17:15)
[2022-12-28] MEDS ORDERED: ISOVUE-370 76% 100ML VIAL As Ordered ONE (17:23)
[2022-12-28] MEDS ORDERED: LEVALBUTEROL 1.25MG 0.5ML CONCENTRATE NEB INH PRN (18:10)
[2022-12-28] MEDS: IPRATROPIUM 0.5MG/ALBUTEROL 2.5MG INH SOL UD 3ML (DUONEB) NEB SCH (19:50)
[2022-12-28] MEDS ORDERED: AZITHROMYCIN 250MG TABLET PO SCH (20:00)
[2022-12-28] MEDS ORDERED: IPRA0.00 INH (22:21)
[2022-12-28] MEDS ORDERED: DIAZ5TAB PO (22:21)
[2022-12-28] MEDS ORDERED: PRED10TA2 PO (22:21)
[2022-12-28] MEDS ORDERED: HOME MED LIST COMPLETE! XX SCH (22:25)
[2022-12-28] MEDS ORDERED: ALBUTEROL 90 MCG/ACT 8GM HFA INHALER INH PRN (22:30)
[2022-12-28] MEDS ORDERED: diazePAM 5MG TABLET PO PRN (22:30)
[2022-12-28] MEDS: FERROUS GLUCONATE 324 MG TAB PO SCH (22:47)
[2022-12-28] MEDS: busPIRone 10 MG TAB PO SCH (22:53)
[2022-12-28] MEDS: traZODone 100 MG TAB PO SCH (22:53)
[2022-12-28] MEDS: GABAPENTIN 300 MG CAP PO SCH (22:53)
[2022-12-28] MEDS ORDERED: PANTOPRAZOLE 40MG VIAL IV SCH (23:00)
[2022-12-28] MEDS: TOLTERODINE (DETROL) 2 MG TAB PO SCH (23:24)
[2022-12-28] MEDS: rOPINIRole 1MG TAB PO SCH (23:24)
[2022-12-29] VITALS (9 sets, daily range): BP systolic 100–102; BP diastolic 60–71; TEMP 97.3–98.3; O2SAT 94–100
[2022-12-29] MEDS: IPRATROPIUM 0.5MG/ALBUTEROL 2.5MG INH SOL UD 3ML (DUONEB) NEB SCH ×4 (02:47→19:17)
[2022-12-29 04:52] LABS: HEMATOCRIT 41.8 % (36.0-47.0); HEMOGLOBIN 13.3 g/dl (12.0-15.5); LYMPH # 0.6 10^3/uL (1.5-5.0); LYMPH % 8.5 % (24.0-44.0); MEAN CORPUSCULAR HGB CONC 31.8 g/dl (32.0-36.5); MEAN CORPUSCULAR VOLUME 94.1 fl (80.0-96.0); MONO # 0.2 10^3/uL (0.0-0.8); MONO % 3.7 % (2.0-8.0); NEUTROPHILS # 5.7 10^3/uL (1.5-8.5); NEUTROPHILS % 87.5 % (36.0-66.0); PLATELET COUNT, AUTOMATED 310 10^3/uL (150-450); RED BLOOD COUNT 4.44 10^6/uL (4.00-5.40); WHITE BLOOD COUNT 6.6 10^3/uL (4.0-10.0)
[2022-12-29 05:06] LABS: BLOOD UREA NITROGEN 11 MG/DL (9-23); CALCIUM LEVEL 9.1 MG/DL (8.5-10.1); CARBON DIOXIDE LEVEL 37 MMOL/L (20-31); CHLORIDE LEVEL 97 MMOL/L (98-107); CREATININE FOR GFR 0.52 MG/DL (0.55-1.30); GLOMERULAR FILTRATION RATE > 60.0 (>51); GLUCOSE, FASTING 170 MG/DL (60-100); POTASSIUM SERUM 5.1 MMOL/L (3.5-5.1); SODIUM LEVEL 139 MMOL/L (136-145)
[2022-12-29] MEDS ORDERED: diazePAM 5MG TABLET PO PRN ×2 (06:55→12:25)
[2022-12-29] MEDS ORDERED: predniSONE 20 MG TAB PO SCH (09:00)
[2022-12-29] MEDS: OMEPRAZOLE 20MG CAP PO SCH (09:00)
[2022-12-29] MEDS ORDERED: ATORVASTATIN 10 MG TAB PO SCH (09:00)
[2022-12-29] MEDS ORDERED: ENOXAPARIN 30MG/0.3ML SYRINGE (J1650 PER 10MG) SC SCH (09:00)
[2022-12-29] MEDS: busPIRone 10 MG TAB PO SCH ×2 (09:08→20:33)
[2022-12-29] MEDS: GABAPENTIN 300 MG CAP PO SCH ×4 (09:08→20:33)
[2022-12-29] MEDS: rOPINIRole 1MG TAB PO SCH ×2 (09:08→20:33)
[2022-12-29] MEDS: MULTIVITAMINS/MINERALS THERAP 1 TAB PO SCH (09:08)
[2022-12-29] MEDS: FERROUS GLUCONATE 324 MG TAB PO SCH (09:08)
[2022-12-29] MEDS: PARoxetine 20MG TABLET PO SCH (09:08)
[2022-12-29] MEDS: SENOKOT S TAB PO PRN (09:09)
[2022-12-29] MEDS ORDERED: HYOSCYAMINE SULFATE 0.125 MG SUBL TABLET PO PRN (12:25)
[2022-12-29] MEDS ORDERED: SCOPOLAMINE 1MG TRANSDERMAL PATCH TOP PRN (12:25)
[2022-12-29] MEDS: MORPHINE 10MG/0.5ML ORAL CONCENTRATE SOLUTION U/D SL PRN ×2 (14:41→20:40)
[2022-12-29] MEDS ORDERED: LORazepam 1 MG TAB PO PRN (15:25)
[2022-12-29] MEDS: traZODone 100 MG TAB PO SCH (20:33)
[2022-12-29] MEDS: TOLTERODINE (DETROL) 2 MG TAB PO SCH (20:34)
[2022-12-29] MEDS: LORazepam 1 MG TAB PO PRN (20:40)
[2022-12-30] MEDS: IPRATROPIUM 0.5MG/ALBUTEROL 2.5MG INH SOL UD 3ML (DUONEB) NEB SCH ×4 (01:55→20:04)
[2022-12-30] MEDS ORDERED: SODIUM CHLORIDE NASAL 0.65% SPRAY BTL (OCEAN) PRN (02:10)
[2022-12-30] MEDS: PARoxetine 20MG TABLET PO SCH (09:19)
[2022-12-30] MEDS: GABAPENTIN 300 MG CAP PO SCH ×4 (09:19→21:29)
[2022-12-30] MEDS: busPIRone 10 MG TAB PO SCH ×2 (09:19→21:29)
[2022-12-30] MEDS: rOPINIRole 1MG TAB PO SCH ×2 (09:19→21:29)
[2022-12-30] MEDS: MULTIVITAMINS/MINERALS THERAP 1 TAB PO SCH (09:19)
[2022-12-30] MEDS: OMEPRAZOLE 20MG CAP PO SCH (09:19)
[2022-12-30] MEDS: LORazepam 1 MG TAB PO PRN (12:05)
[2022-12-30] MEDS: SENOKOT S TAB PO PRN (12:08)
[2022-12-30] MEDS: TOLTERODINE (DETROL) 2 MG TAB PO SCH (21:29)
[2022-12-30] MEDS: traZODone 100 MG TAB PO SCH (21:29)
[2022-12-30] MEDS: MIRALAX *UNIT DOSE* 17GM PACKET PO PRN (22:08)
[2022-12-30] MEDS: FLUTICASONE PROP 0.05% NASAL SPRAY 16 GM (FLONASE) NARES SCH (22:37)
[2022-12-31] MEDS: IPRATROPIUM 0.5MG/ALBUTEROL 2.5MG INH SOL UD 3ML (DUONEB) NEB SCH ×4 (02:45→20:48)
[2022-12-31] MEDS: ACETAMINOPHEN TAB 650MG DOSE (2X325MG) PO PRN ×2 (03:30→21:03)
[2022-12-31] MEDS: OMEPRAZOLE 20MG CAP PO SCH (07:55)
[2022-12-31] MEDS: GABAPENTIN 300 MG CAP PO SCH ×4 (07:55→21:02)
[2022-12-31] MEDS: busPIRone 10 MG TAB PO SCH ×2 (07:56→21:02)
[2022-12-31] MEDS: rOPINIRole 1MG TAB PO SCH ×2 (07:56→21:03)
[2022-12-31] MEDS: MULTIVITAMINS/MINERALS THERAP 1 TAB PO SCH (07:56)
[2022-12-31] MEDS: PARoxetine 20MG TABLET PO SCH (07:56)
[2022-12-31] MEDS: FLUTICASONE PROP 0.05% NASAL SPRAY 16 GM (FLONASE) NARES SCH ×2 (07:56→21:04)
[2022-12-31] MEDS: SENOKOT S TAB PO PRN (10:06)
[2022-12-31] MEDS: diazePAM 5MG TABLET PO PRN ×2 (10:07→12:25)
[2022-12-31] MEDS: MORPHINE 10MG/0.5ML ORAL CONCENTRATE SOLUTION U/D SL PRN (12:26)
[2022-12-31] MEDS ORDERED: LACTULOSE 20GM/30ML SYRUP UDC PO ONE (13:00)
[2022-12-31] MEDS: traZODone 100 MG TAB PO SCH (21:03)
[2022-12-31] MEDS: TOLTERODINE (DETROL) 2 MG TAB PO SCH (21:03)
[2023-01-01] MEDS: IPRATROPIUM 0.5MG/ALBUTEROL 2.5MG INH SOL UD 3ML (DUONEB) NEB SCH ×4 (01:31→19:16)
[2023-01-01] MEDS: MORPHINE 10MG/0.5ML ORAL CONCENTRATE SOLUTION U/D SL PRN (05:32)
[2023-01-01] MEDS: rOPINIRole 1MG TAB PO SCH ×3 (09:00→20:42)
[2023-01-01] MEDS: MULTIVITAMINS/MINERALS THERAP 1 TAB PO SCH (10:17)
[2023-01-01] MEDS: OMEPRAZOLE 20MG CAP PO SCH (10:17)
[2023-01-01] MEDS: PARoxetine 20MG TABLET PO SCH (10:18)
[2023-01-01] MEDS: diazePAM 5MG TABLET PO PRN (10:18)
[2023-01-01] MEDS: busPIRone 10 MG TAB PO SCH ×2 (10:18→20:41)
[2023-01-01] MEDS: GABAPENTIN 300 MG CAP PO SCH ×4 (10:18→20:41)
[2023-01-01] MEDS: FLUTICASONE PROP 0.05% NASAL SPRAY 16 GM (FLONASE) NARES SCH ×2 (10:19→20:42)
[2023-01-01] MEDS: MIRALAX *UNIT DOSE* 17GM PACKET PO PRN (17:52)
[2023-01-01] MEDS: traZODone 100 MG TAB PO SCH (20:41)
[2023-01-01] MEDS: TOLTERODINE (DETROL) 2 MG TAB PO SCH (20:42)
[2023-01-02] MEDS: IPRATROPIUM 0.5MG/ALBUTEROL 2.5MG INH SOL UD 3ML (DUONEB) NEB SCH ×4 (01:38→19:30)
[2023-01-02] MEDS: SENOKOT S TAB PO PRN (01:57)
[2023-01-02] MEDS: ACETAMINOPHEN TAB 650MG DOSE (2X325MG) PO PRN (01:57)
[2023-01-02] MEDS: rOPINIRole 1MG TAB PO SCH ×2 (08:58→20:25)
[2023-01-02] MEDS: MULTIVITAMINS/MINERALS THERAP 1 TAB PO SCH (08:58)
[2023-01-02] MEDS: busPIRone 10 MG TAB PO SCH ×2 (08:58→20:25)
[2023-01-02] MEDS: PARoxetine 20MG TABLET PO SCH (08:59)
[2023-01-02] MEDS: GABAPENTIN 300 MG CAP PO SCH ×4 (08:59→20:26)
[2023-01-02] MEDS: FLUTICASONE PROP 0.05% NASAL SPRAY 16 GM (FLONASE) NARES SCH ×2 (08:59→20:26)
[2023-01-02] MEDS: OMEPRAZOLE 20MG CAP PO SCH (08:59)
[2023-01-02] MEDS: MORPHINE 10MG/0.5ML ORAL CONCENTRATE SOLUTION U/D SL PRN ×3 (12:00→20:25)
[2023-01-02] MEDS: diazePAM 5MG TABLET PO PRN ×2 (17:22→20:25)
[2023-01-02] MEDS: MIRALAX *UNIT DOSE* 17GM PACKET PO PRN (17:43)
[2023-01-02] MEDS: traZODone 100 MG TAB PO SCH (20:26)
[2023-01-02] MEDS: TOLTERODINE (DETROL) 2 MG TAB PO SCH (20:26)
[2023-01-03] MEDS: IPRATROPIUM 0.5MG/ALBUTEROL 2.5MG INH SOL UD 3ML (DUONEB) NEB SCH ×4 (01:38→20:43)
[2023-01-03] MEDS: MORPHINE 10MG/0.5ML ORAL CONCENTRATE SOLUTION U/D SL PRN ×2 (01:58→21:23)
[2023-01-03] MEDS: ACETAMINOPHEN TAB 650MG DOSE (2X325MG) PO PRN ×2 (04:41→08:35)
[2023-01-03] MEDS: OMEPRAZOLE 20MG CAP PO SCH (08:34)
[2023-01-03] MEDS: GABAPENTIN 300 MG CAP PO SCH ×4 (08:34→21:23)
[2023-01-03] MEDS: PARoxetine 20MG TABLET PO SCH (08:34)
[2023-01-03] MEDS: busPIRone 10 MG TAB PO SCH ×2 (08:34→21:23)
[2023-01-03] MEDS: MULTIVITAMINS/MINERALS THERAP 1 TAB PO SCH (08:34)
[2023-01-03] MEDS: rOPINIRole 1MG TAB PO SCH ×2 (08:34→21:23)
[2023-01-03] MEDS: FLUTICASONE PROP 0.05% NASAL SPRAY 16 GM (FLONASE) NARES SCH ×2 (08:35→21:24)
[2023-01-03] MEDS: diazePAM 5MG TABLET PO PRN ×2 (15:27→21:23)
[2023-01-03] MEDS: MIRALAX *UNIT DOSE* 17GM PACKET PO PRN (17:24)
[2023-01-03] MEDS: traZODone 100 MG TAB PO SCH (21:23)
[2023-01-03] MEDS: TOLTERODINE (DETROL) 2 MG TAB PO SCH (21:23)
[2023-01-04] MEDS: IPRATROPIUM 0.5MG/ALBUTEROL 2.5MG INH SOL UD 3ML (DUONEB) NEB SCH ×4 (00:27→19:28)
[2023-01-04] MEDS: OMEPRAZOLE 20MG CAP PO SCH (09:13)
[2023-01-04] MEDS: MULTIVITAMINS/MINERALS THERAP 1 TAB PO SCH (09:13)
[2023-01-04] MEDS: PARoxetine 20MG TABLET PO SCH (09:13)
[2023-01-04] MEDS: busPIRone 10 MG TAB PO SCH ×2 (09:13→20:53)
[2023-01-04] MEDS: FLUTICASONE PROP 0.05% NASAL SPRAY 16 GM (FLONASE) NARES SCH ×2 (09:13→20:54)
[2023-01-04] MEDS: GABAPENTIN 300 MG CAP PO SCH ×4 (09:13→20:53)
[2023-01-04] MEDS: rOPINIRole 1MG TAB PO SCH ×2 (09:13→20:53)
[2023-01-04] MEDS: MORPHINE 10MG/0.5ML ORAL CONCENTRATE SOLUTION U/D SL PRN ×2 (10:09→21:00)
[2023-01-04] MEDS: diazePAM 5MG TABLET PO PRN ×2 (10:10→21:01)
[2023-01-04] MEDS: MIRALAX *UNIT DOSE* 17GM PACKET PO PRN (17:20)
[2023-01-04] MEDS: traZODone 100 MG TAB PO SCH (20:53)
[2023-01-04] MEDS: TOLTERODINE (DETROL) 2 MG TAB PO SCH (20:53)
[2023-01-04] MEDS: SENOKOT S TAB PO PRN (21:07)
[2023-01-05] MEDS: MORPHINE 10MG/0.5ML ORAL CONCENTRATE SOLUTION U/D SL PRN ×2 (00:46→12:37)
[2023-01-05] MEDS: diazePAM 5MG TABLET PO PRN ×2 (00:46→12:37)
[2023-01-05] MEDS: IPRATROPIUM 0.5MG/ALBUTEROL 2.5MG INH SOL UD 3ML (DUONEB) NEB SCH ×4 (02:18→19:16)
[2023-01-05] MEDS: ACETAMINOPHEN TAB 650MG DOSE (2X325MG) PO PRN (05:21)
[2023-01-05] MEDS: busPIRone 10 MG TAB PO SCH ×2 (08:52→20:33)
[2023-01-05] MEDS: PARoxetine 20MG TABLET PO SCH (08:52)
[2023-01-05] MEDS: OMEPRAZOLE 20MG CAP PO SCH (08:52)
[2023-01-05] MEDS: MULTIVITAMINS/MINERALS THERAP 1 TAB PO SCH (08:52)
[2023-01-05] MEDS: GABAPENTIN 300 MG CAP PO SCH ×4 (08:52→20:32)
[2023-01-05] MEDS: FLUTICASONE PROP 0.05% NASAL SPRAY 16 GM (FLONASE) NARES SCH ×2 (08:52→20:33)
[2023-01-05] MEDS: rOPINIRole 1MG TAB PO SCH ×2 (08:52→20:33)
[2023-01-05] MEDS: MIRALAX *UNIT DOSE* 17GM PACKET PO PRN (17:38)
[2023-01-05] MEDS: TOLTERODINE (DETROL) 2 MG TAB PO SCH (20:32)
[2023-01-05] MEDS: traZODone 100 MG TAB PO SCH (20:33)
[2023-01-05] MEDS: guaiFENesin ER 600 MG TAB PO SCH (21:24)
[2023-01-06] MEDS: IPRATROPIUM 0.5MG/ALBUTEROL 2.5MG INH SOL UD 3ML (DUONEB) NEB SCH ×4 (01:30→19:04)
[2023-01-06] MEDS: MORPHINE 10MG/0.5ML ORAL CONCENTRATE SOLUTION U/D SL PRN ×3 (03:49→20:53)
[2023-01-06] MEDS: diazePAM 5MG TABLET PO PRN ×4 (03:49→20:53)
[2023-01-06] MEDS: busPIRone 10 MG TAB PO SCH ×2 (09:56→20:53)
[2023-01-06] MEDS: rOPINIRole 1MG TAB PO SCH ×2 (09:56→20:53)
[2023-01-06] MEDS: GABAPENTIN 300 MG CAP PO SCH ×4 (09:56→20:53)
[2023-01-06] MEDS: MULTIVITAMINS/MINERALS THERAP 1 TAB PO SCH (09:56)
[2023-01-06] MEDS: PARoxetine 20MG TABLET PO SCH (09:56)
[2023-01-06] MEDS: OMEPRAZOLE 20MG CAP PO SCH (09:57)
[2023-01-06] MEDS: FLUTICASONE PROP 0.05% NASAL SPRAY 16 GM (FLONASE) NARES SCH ×2 (09:57→20:53)
[2023-01-06] MEDS: guaiFENesin ER 600 MG TAB PO SCH ×2 (09:57→20:53)
[2023-01-06] MEDS: SENOKOT S TAB PO PRN (17:46)
[2023-01-06] MEDS: traZODone 100 MG TAB PO SCH (20:53)
[2023-01-06] MEDS: TOLTERODINE (DETROL) 2 MG TAB PO SCH (20:53)
[2023-01-07] MEDS: MORPHINE 10MG/0.5ML ORAL CONCENTRATE SOLUTION U/D SL PRN ×3 (00:25→21:15)
[2023-01-07] MEDS: diazePAM 5MG TABLET PO PRN ×3 (00:25→21:15)
[2023-01-07] MEDS: IPRATROPIUM 0.5MG/ALBUTEROL 2.5MG INH SOL UD 3ML (DUONEB) NEB SCH ×4 (02:07→19:42)
[2023-01-07] MEDS: ACETAMINOPHEN TAB 650MG DOSE (2X325MG) PO PRN (07:22)
[2023-01-07] MEDS: rOPINIRole 1MG TAB PO SCH ×2 (09:20→21:15)
[2023-01-07] MEDS: GABAPENTIN 300 MG CAP PO SCH ×4 (09:20→21:14)
[2023-01-07] MEDS: busPIRone 10 MG TAB PO SCH ×2 (09:20→21:14)
[2023-01-07] MEDS: OMEPRAZOLE 20MG CAP PO SCH (09:20)
[2023-01-07] MEDS: PARoxetine 20MG TABLET PO SCH (09:20)
[2023-01-07] MEDS: guaiFENesin ER 600 MG TAB PO SCH ×2 (09:21→21:15)
[2023-01-07] MEDS: FLUTICASONE PROP 0.05% NASAL SPRAY 16 GM (FLONASE) NARES SCH ×2 (09:21→21:16)
[2023-01-07] MEDS: MULTIVITAMINS/MINERALS THERAP 1 TAB PO SCH (09:21)
[2023-01-07] MEDS: TOLTERODINE (DETROL) 2 MG TAB PO SCH (21:14)
[2023-01-07] MEDS: traZODone 100 MG TAB PO SCH (21:15)
[2023-01-08] MEDS: IPRATROPIUM 0.5MG/ALBUTEROL 2.5MG INH SOL UD 3ML (DUONEB) NEB SCH ×4 (00:25→19:36)
[2023-01-08] MEDS: MORPHINE 10MG/0.5ML ORAL CONCENTRATE SOLUTION U/D SL PRN ×4 (04:31→17:23)
[2023-01-08] MEDS: diazePAM 5MG TABLET PO PRN ×4 (04:31→17:23)
[2023-01-08] MEDS: PARoxetine 20MG TABLET PO SCH (10:12)
[2023-01-08] MEDS: OMEPRAZOLE 20MG CAP PO SCH (10:12)
[2023-01-08] MEDS: rOPINIRole 1MG TAB PO SCH ×2 (10:13→20:34)
[2023-01-08] MEDS: busPIRone 10 MG TAB PO SCH ×2 (10:13→20:34)
[2023-01-08] MEDS: GABAPENTIN 300 MG CAP PO SCH ×4 (10:13→20:35)
[2023-01-08] MEDS: guaiFENesin ER 600 MG TAB PO SCH ×2 (10:13→20:34)
[2023-01-08] MEDS: FLUTICASONE PROP 0.05% NASAL SPRAY 16 GM (FLONASE) NARES SCH ×2 (10:14→20:35)
[2023-01-08] MEDS: MULTIVITAMINS/MINERALS THERAP 1 TAB PO SCH (10:14)
[2023-01-08] MEDS: traZODone 100 MG TAB PO SCH (20:34)
[2023-01-08] MEDS: TOLTERODINE (DETROL) 2 MG TAB PO SCH (20:34)
[2023-01-08] MEDS: MIRALAX *UNIT DOSE* 17GM PACKET PO PRN (21:00)
[2023-01-08] MEDS: SENOKOT S TAB PO PRN (21:00)
[2023-01-09] MEDS: MORPHINE 10MG/0.5ML ORAL CONCENTRATE SOLUTION U/D SL PRN ×4 (01:33→23:36)
[2023-01-09] MEDS: diazePAM 5MG TABLET PO PRN ×4 (01:33→23:37)
[2023-01-09] MEDS: IPRATROPIUM 0.5MG/ALBUTEROL 2.5MG INH SOL UD 3ML (DUONEB) NEB SCH ×4 (02:52→19:35)
[2023-01-09] MEDS: PARoxetine 20MG TABLET PO SCH (09:34)
[2023-01-09] MEDS: GABAPENTIN 300 MG CAP PO SCH ×4 (09:35→20:56)
[2023-01-09] MEDS: MULTIVITAMINS/MINERALS THERAP 1 TAB PO SCH (09:35)
[2023-01-09] MEDS: OMEPRAZOLE 20MG CAP PO SCH (09:35)
[2023-01-09] MEDS: FLUTICASONE PROP 0.05% NASAL SPRAY 16 GM (FLONASE) NARES SCH ×2 (09:35→20:57)
[2023-01-09] MEDS: busPIRone 10 MG TAB PO SCH ×2 (09:35→20:57)
[2023-01-09] MEDS: guaiFENesin ER 600 MG TAB PO SCH ×2 (09:35→20:57)
[2023-01-09] MEDS: rOPINIRole 1MG TAB PO SCH ×2 (09:35→20:57)
[2023-01-09] MEDS: traZODone 100 MG TAB PO SCH (20:57)
[2023-01-09] MEDS: TOLTERODINE (DETROL) 2 MG TAB PO SCH (20:57)
[2023-01-10] MEDS: IPRATROPIUM 0.5MG/ALBUTEROL 2.5MG INH SOL UD 3ML (DUONEB) NEB SCH ×4 (02:00→19:49)
[2023-01-10] MEDS: GABAPENTIN 300 MG CAP PO SCH ×4 (08:28→20:03)
[2023-01-10] MEDS: rOPINIRole 1MG TAB PO SCH ×2 (08:28→20:03)
[2023-01-10] MEDS: busPIRone 10 MG TAB PO SCH ×2 (08:28→20:04)
[2023-01-10] MEDS: MULTIVITAMINS/MINERALS THERAP 1 TAB PO SCH (08:28)
[2023-01-10] MEDS: PARoxetine 20MG TABLET PO SCH (08:28)
[2023-01-10] MEDS: OMEPRAZOLE 20MG CAP PO SCH (08:28)
[2023-01-10] MEDS: guaiFENesin ER 600 MG TAB PO SCH ×2 (08:28→20:04)
[2023-01-10] MEDS: FLUTICASONE PROP 0.05% NASAL SPRAY 16 GM (FLONASE) NARES SCH ×2 (08:29→20:04)
[2023-01-10] MEDS: traZODone 100 MG TAB PO SCH (20:04)
[2023-01-10] MEDS: TOLTERODINE (DETROL) 2 MG TAB PO SCH (20:04)
[2023-01-10] MEDS: MORPHINE 10MG/0.5ML ORAL CONCENTRATE SOLUTION U/D SL PRN (22:31)
[2023-01-10] MEDS: diazePAM 5MG TABLET PO PRN (22:31)
[2023-01-11] MEDS: IPRATROPIUM 0.5MG/ALBUTEROL 2.5MG INH SOL UD 3ML (DUONEB) NEB SCH ×3 (02:47→13:13)
[2023-01-11] MEDS: guaiFENesin ER 600 MG TAB PO SCH (08:57)
[2023-01-11] MEDS: busPIRone 10 MG TAB PO SCH (08:57)
[2023-01-11] MEDS: GABAPENTIN 300 MG CAP PO SCH ×2 (08:57→12:41)
[2023-01-11] MEDS: PARoxetine 20MG TABLET PO SCH (08:58)
[2023-01-11] MEDS: OMEPRAZOLE 20MG CAP PO SCH (08:58)
[2023-01-11] MEDS: rOPINIRole 1MG TAB PO SCH (08:58)
[2023-01-11] MEDS: MULTIVITAMINS/MINERALS THERAP 1 TAB PO SCH (08:59)
[2023-01-11] MEDS: FLUTICASONE PROP 0.05% NASAL SPRAY 16 GM (FLONASE) NARES SCH (09:26)
[2023-01-11] MEDS: SENOKOT S TAB PO PRN (09:32)
[2023-01-11] MEDS ORDERED: MORP1SOL5 PO (12:24)
[2023-01-11] MEDS ORDERED: HYOS125TA PO (12:24)
[2023-01-11] MEDS ORDERED: ATIV1TAB10 PO (12:24)
[2023-01-11] MEDS: diazePAM 5MG TABLET PO PRN (13:44)
[2023-01-11] MEDS: MORPHINE 10MG/0.5ML ORAL CONCENTRATE SOLUTION U/D SL PRN (13:44)
== END 2023-01-11 13:51 | disposition hospice, home (50) ==
LOC: M ED 15:01 → EDBD 15:01 → M ED INP 15:02 → ENRESERV 12-29 01:37 → M PCU 12-29 02:10 → M MS5PR 12-29 17:10
PROVIDERS: ADMIT Internal Medicine; ATTEND Student in an Organized Health Care Education/Training Program
DX: J96.11 Chronic respiratory failure with hypoxia (principal); J84.10 Pulmonary fibrosis, unspecified; J44.1 Chronic obstructive pulmonary disease with (acute) exacerbation; R64 Cachexia; E44.1 Mild protein-calorie malnutrition; E87.1 Hypo-osmolality and hyponatremia; J91.8 Pleural effusion in other conditions classified elsewhere; K21.9 Gastro-esophageal reflux disease without esophagitis; K58.8 Other irritable bowel syndrome; D50.9 Iron deficiency anemia, unspecified; G25.81 Restless legs syndrome; N39.490 Overflow incontinence; F39 Unspecified mood [affective] disorder; Z79.899 Other long term (current) drug therapy
CPT/HCPCS: 36415; 71045; 71275; 80048; 80076; 82803; 83880; 84145; 84443; 85025; 86037; 86235; 87040; 87486; 87581; 87633; 87798; 93005; 93041; 94640; 94760; 96372; 96374; 96375; 97161; 97165; 99285; C9113; J1650; J2930; J7512; Q9967